=== PATIENT | male | born 1980 | race Caucasian/White ===

== ENCOUNTER → 2017-08-08 | Outpatient (CLI) | payer OTHER ==
--- NOTE | 2017-08-08 10:00 | NUR ---
ALCOHOL/DRUG TEST AND EVALUATION 2 HRS: Clt is present as directed by the courts for this eval. See written eval for test results and recommendations.
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
== END | disposition home or self-care (01) ==
LOC: ADTC.GI 12:54
DX: F15.20 Other stimulant dependence, uncomplicated (principal); F10.20 Alcohol dependence, uncomplicated